=== PATIENT | female | born 1955 ===

== ENCOUNTER 2016-07-25 08:51 | Emergency (ER) | payer MEDICARE, OTHER ==
[2016-07-25 09:17] VITALS: RESP 16; TEMP 98.6; O2SAT 100; BMI 27.3
--- NOTE | 2016-07-25 09:22 | ED PDOC ---
Arrival/HPI - General Chief Complaint: Abnormal Skin Integrity Time Seen by Provider: 07/25/16 09:17 - History of Present Illness Narrative History of Present Illness (Text): Krysten Davenport is a 60 year old female, whose past medical history includes chicken pox, who presents to the emergency department complaining of a rash to her right-sided back and lower right-sided abdomen for two days. Patient states that the pain came first with associated fever which has resolved. Patient denies any chills, chest pain, shortness of breath, nausea, vomiting, diarrhea, urinary symptoms, back pain, neck pain, headache, dizziness, or any other complaints. PMD: Dr. Arauz Time/Duration: 24 hours Symptom Onset: Gradual Symptom Course: Unchanged Severity Level: Mild Activities at Onset: Light Context: Home Past Medical History - Provider Review Nursing Documentation Reviewed: Yes - Psychiatric Hx Substance Use: No Family/Social History - Physician Review Nursing Documentation Reviewed: Yes Family/Social History: No Known Family HX Smoking Status: Never Smoked Hx Alcohol Use: No Hx Substance Use: No Allergies/Home Meds Allergies/Adverse Reactions: Allergies celecoxib [From Celebrex] Allergy (Verified 04/19/15 07:00) RASH levofloxacin [From Levaquin] Allergy (Verified 07/25/16 09:08) RASH Home Medications: Home Meds Medication Instructions Recorded Confirmed Aspirin [Adult Low Dose Aspirin EC] 81 mg PO DAILY 07/25/16 07/25/16 Atorvastatin [Lipitor] 20 mg PO DAILY 07/25/16 07/25/16 Fluticasone/Vilanterol [Breo 1 each IH DAILY 07/25/16 07/25/16 Ellipta 200-25 Mcg INH] Losartan Potassium 25 mg PO DAILY 07/25/16 07/25/16 Montelukast Sodium [Singulair] 4 mg PO DAILY 07/25/16 07/25/16 Review of Systems - Physician Review All systems were reviewed & negative as marked: Yes - Review of Systems Constitutional: absent: Fevers, Night Sweats Eyes: absent: Vision Changes ENT: absent: Hearing Changes Respiratory: absent: SOB, Cough Cardiovascular: absent: Chest Pain Gastrointestinal: absent: Abdominal Pain Genitourinary Female: absent: Urine Output Changes Musculoskeletal: absent: Back Pain, Neck Pain Skin: Rash Neurological: absent: Headache, Dizziness Endocrine: absent: Polyuria Hemo/Lymphatic: absent: Easy Bleeding Psychiatric: absent: Depression Physical Exam - Physical Exam Narrative Physical Exam (Text): Constitutional: No acute distress. Head: Normocephalic. Atraumatic. Eyes: PERRL. ENT: Moist mucous membranes. Neck: Supple. Cardiovascular: Regular rate. Chest: No tenderness. Respiratory: Clear to auscultation bilaterally. GI: Soft. Nontender. Nondistended. Back: No CVA tenderness. Musculoskeletal: No tenderness or swelling of extremities. Skin: Vesicular clustered, affecting one dermatome. No lesions on face, tip of nose, or ears. Neurologic: Alert, no focal deficit. Vital Signs Reviewed: Yes Vital Signs Temp Pulse Resp BP Pulse Ox 07/25/16 09:40 80 16 121/52 L 100 07/25/16 09:08 98.6 F 82 16 129/89 100 Temperature: Afebrile Blood Pressure: Normal Pulse: Regular Respiratory Rate: Normal Appearance: Positive for: Well-Appearing, Non-Toxic, Comfortable Pain Distress: None Mental Status: Positive for: Alert and Oriented X 3 Medical Decision Making ED Course and Treatment: Impression: 60 year old female complaining of rash on right-sided back and right-sided abdomen for two days. Plan: -- Toradol and Valtrex -- Reassess and disposition Prior Visits: Notes and results from previous visits were reviewed. Patient last seen in ED on 04/19/15 for cough and difficulty breathing for 2 days. Patient was discharged home. Progress Notes: Discharged home, f/u PMD, instructed to return to ER for new lesions in other area of body, eye or nose lesions. - Medication Orders Current Medication Orders: Discontinued Medications Ketorolac Tromethamine (Toradol) 30 mg IM STAT STA Stop: 07/25/16 09:19 Last Admin: 07/25/16 09:38 Dose: 30 mg Valacyclovir HCl (Valtrex) 1 gm PO STAT STA PRN Reason: Protocol Stop: 07/25/16 09:18 Last Admin: 07/25/16 09:39 Dose: 1 gm - Scribe Statement The provider has reviewed the documentation as recorded by the Ricardoibmark Hazel Provider Scribe Attestation: All medical record entries made by the Scribe were at my direction and personally dictated by me. I have reviewed the chart and agree that the record accurately reflects my personal performance of the history, physical exam, medical decision making, and the department course for this patient. I have also personally directed, reviewed, and agree with the discharge instructions and disposition. Disposition/Present on Arrival - Present on Arrival Any Indicators Present on Arrival: No History of DVT/PE: No History of Uncontrolled Diabetes: No Urinary Catheter: No History of Decub. Ulcer: No History Surgical Site Infection Following: None - Disposition Have Diagnosis and Disposition been Completed?: Yes Diagnosis: Shingles Disposition: HOME/ ROUTINE Disposition Time: 09:19 Patient Plan: Discharge Condition: STABLE Discharge Instructions (ExitCare): Marie (ED) Prescriptions: Ibuprofen [Motrin] 600 mg PO Q6 #25 tab valACYclovir [Valtrex] 1 gm PO Q8H #14 tab Referrals: Liudmila Arauz MD [Primary Care Provider] - Follow up with primary
[2016-07-25 09:41] VITALS: BP 121/52; PULSE 80
== END 2016-07-25 09:40 | disposition home or self-care (01) ==
LOC: ED 08:51
DX: B02.9 Zoster without complications (principal)
CPT/HCPCS: 96372; 99283; J1885

== ENCOUNTER 2017-12-28 08:41 | Emergency (ER) | payer MEDICARE, OTHER ==
[2017-12-28 08:52] VITALS: BMI 28.3
--- NOTE | 2017-12-28 09:09 | ED PDOC ---
Arrival/HPI - General Time Seen by Provider: 12/28/17 08:46 Historian: Patient - History of Present Illness Narrative History of Present Illness (Text): 12/28/17 09:00 62 year old female, with no significant past medical history, presents to the emergency department complaining of neck discomfort that began 1-2 weeks ago. She reports her neck is stiff and is unable to turn her head. Patient reports she saw her PMD who prescribed Naproxen and Meloxicam with no relief. Patient denies any fall or trauma. She states she was doing some heavy lifting at home. Patient denies any fever, chills, chest pain, shortness of breath, nausea, vomiting, diarrhea, back pain, headache, dizziness, or any other complaints. PMD: Dr. Liudmila Arauz Time/Duration: Other (1- 2 weeks) Symptom Course: Unchanged Quality: Other (Stiff) Activities at Onset: Light Context: Home Past Medical History - Provider Review Nursing Documentation Reviewed: Yes - Psychiatric Hx Substance Use: No Family/Social History - Physician Review Nursing Documentation Reviewed: Yes Family/Social History: No Known Family HX Smoking Status: Never Smoked Hx Alcohol Use: No Hx Substance Use: No Allergies/Home Meds Allergies/Adverse Reactions: Allergies celecoxib [From Celebrex] Allergy (Verified 04/19/15 07:00) RASH levofloxacin [From Levaquin] Allergy (Verified 07/25/16 09:08) RASH Home Medications: Home Meds Medication Instructions Recorded Confirmed Aspirin [Adult Low Dose Aspirin EC] 81 mg PO DAILY 07/25/16 07/25/16 Atorvastatin [Lipitor] 20 mg PO DAILY 07/25/16 07/25/16 Fluticasone/Vilanterol [Breo 1 each IH DAILY 07/25/16 07/25/16 Ellipta 200-25 Mcg INH] Losartan Potassium 25 mg PO DAILY 07/25/16 07/25/16 Montelukast Sodium [Singulair] 4 mg PO DAILY 07/25/16 07/25/16 Review of Systems - Physician Review All systems were reviewed & negative as marked: Yes - Review of Systems Constitutional: absent: Fevers, Other (Chills) Respiratory: absent: SOB Cardiovascular: absent: Chest Pain Gastrointestinal: absent: Diarrhea, Nausea, Vomiting Musculoskeletal: Neck Pain. absent: Back Pain Neurological: absent: Headache, Dizziness Physical Exam Vital Signs Reviewed: Yes Temperature: Afebrile Blood Pressure: Hypertensive Pulse: Regular Respiratory Rate: Normal Appearance: Positive for: Well-Appearing, Non-Toxic, Comfortable Pain Distress: None Mental Status: Positive for: Alert and Oriented X 3 - Systems Exam Head: Present: Atraumatic, Normocephalic Pupils: Present: PERRL Extroacular Muscles: Present: EOMI Conjunctiva: Present: Normal Mouth: Present: Moist Mucous Membranes Neck: Present: Other (Hypertenisity and tenderness to the right trapezius) Respiratory/Chest: Present: Clear to Auscultation, Good Air Exchange. No: Respiratory Distress, Accessory Muscle Use Cardiovascular: Present: Regular Rate and Rhythm, Normal S1, S2. No: Murmurs Back: Present: Normal Inspection Lower Extremity: No: Normal Inspection Neurological: Present: GCS=15, CN II-XII Intact, Speech Normal Skin: Present: Warm, Dry, Normal Color. No: Rashes Psychiatric: Present: Alert, Oriented x 3, Normal Insight, Normal Concentration Medical Decision Making ED Course and Treatment: 12/28/17 09:00 Impression: 62 year old female presents complaining of neck discomfort for the past 1-2 weeks. Plan: -- Flexeril, Motrin -- Reassess and disposition Progress Notes: 12/28/17 09:15 On re-evaluation, patient feels better and is in no acute distress. I have discussed the results and plan with the patient, who expresses understanding. Patient in agreement with plan to be discharged home. Patient is stable for discharge. Patient was instructed to follow up with physician or return if symptoms worsen or new concerning symptoms arise. - Medication Orders Current Medication Orders: Ibuprofen (Motrin Tab) 600 mg PO STAT STA Stop: 12/28/17 09:05 Discontinued Medications Cyclobenzaprine HCl (Flexeril) 10 mg PO STAT STA Stop: 12/28/17 09:05 - Scribe Statement The provider has reviewed the documentation as recorded by the Doreen Ku Provider Scribe Attestation: All medical record entries made by the Scribe were at my direction and personally dictated by me. I have reviewed the chart and agree that the record accurately reflects my personal performance of the history, physical exam, medical decision making, and the department course for this patient. I have also personally directed, reviewed, and agree with the discharge instructions and disposition. Disposition/Present on Arrival - Present on Arrival Any Indicators Present on Arrival: No History of DVT/PE: No History of Uncontrolled Diabetes: No Urinary Catheter: No History Surgical Site Infection Following: None - Disposition Have Diagnosis and Disposition been Completed?: Yes Diagnosis: Musculoskeletal pain Disposition: HOSPITALIZED Disposition Time: 09:00 Condition: GOOD Discharge Instructions (ExitCare): Muscle and Bone Pain (DC) Additional Instructions: SELENA WILLS, thank you for letting us take care of you today. Your provider was Armando Johnson DO and you were treated for NECK AND BACK PAIN. The emergency medical care you received today was directed at your acute symptoms. If you were prescribed any medication, please fill it and take as directed. It may take several days for your symptoms to resolve. Return to the Emergency Department if your symptoms worsen, do not improve, or if you have any other problems. Please contact your doctor or call one of the physicians/clinics you have been referred to that are listed on the Patient Visit Information form that is included in your discharge packet. Bring any paperwork you were given at discharge with you along with any medications you are taking to your follow up visit. Our treatment cannot replace ongoing medical care by a primary care provider outside of the emergency department. Thank you for allowing the [facility] team to be part of your care today. You can take the Flexeril along with the Naprosyn for added relief. You can apply heat or ice to the area for added relief. Followup with your primary care doctor in 3-4 days for re-evaluation and further management. Prescriptions: Cyclobenzaprine [Cyclobenzaprine HCl] 10 mg PO Q8 PRN #20 tab PRN Reason: Muscle Spasm Referrals: Liudmila Arauz MD [Primary Care Provider] - Follow up with primary Forms: [employer] (Armenian)
[2017-12-28 09:21] VITALS: BP 159/88; PULSE 80; RESP 19; TEMP 98; O2SAT 99
== END 2017-12-28 09:21 | disposition home or self-care (01) ==
LOC: ED 08:41
DX: M79.18 Myalgia, other site (principal)